=== PATIENT | female | born 1975 | race Two or more races ===

== ENCOUNTER 2020-06-10 23:33 | Emergency (ER) | payer MEDICAID, SELFPAY ==
[2020-06-10 23:55] VITALS: BP 108/60; PULSE 104; RESP 16; TEMP 37.1; O2SAT 99; BMI 25.6
--- NOTE | 2020-06-11 | XR_ITS ---
EXAMINATIONS: SHOULDER 3 VIEWS, BILATERAL CLINICAL INFORMATION: Bilateral shoulder pain after fall. COMPARISON: None. TECHNIQUE: AP views of each shoulder were obtained in internal and external rotation. In addition, Y views were obtained. FINDINGS: There are no fractures or dislocations. The humeral head is seated within a well-formed glenoid on each side. The AC joints are intact. IMPRESSION: Unremarkable bilateral shoulder radiographs.
--- NOTE | 2020-06-11 | XR_ITS ---
EXAMINATION: CERVICAL SPINE 4 VIEWS CLINICAL INFORMATION: Pain after fall. COMPARISON: None. TECHNIQUE: AP, lateral, odontoid and swimmer's views of the cervical spine were obtained. FINDINGS: The cervical vertebrae are in normal alignment. There is disc height loss at C5/C6 with mild anterior osteophyte formation. Disc heights and vertebral body heights are otherwise well-preserved. There are no fractures. There is no prevertebral soft tissue swelling. On the odontoid view, the atlas sits well upon the axis. IMPRESSION: No evidence for acute injury. Mild lower cervical spine degenerative change.
--- NOTE | 2020-06-11 | XR_ITS ---
EXAMINATION: CHEST 2 VIEWS CLINICAL INFORMATION: Pain after fall. COMPARISON: 05/08/2020. TECHNIQUE: PA and lateral views of the chest were obtained. FINDINGS: The cardiac silhouette is not enlarged. The mediastinal and hilar contours are unremarkable. There are neither pleural effusions nor pneumothoraces. There are no consolidations. Posterior spinal fusion hardware is intact. There is stable residual scoliosis. The osseous structures are stable. IMPRESSION: No evidence for acute disease.
--- NOTE | 2020-06-11 00:19 | ED.FALL ---
HPI - Fall General Chief Complaint: Fall <Brii Landon NP - Last Filed: 06/11/20 01:05> Stated Complaint: FELL IN SHOWER <Brii Landon NP - Last Filed: 06/11/20 01:05> Time Seen by Provider: 06/11/20 00:16 <Brii Landon NP - Last Filed: 06/11/20 01:05> Related Data Allergies/Adverse Reactions: Allergies Allergy/AdvReac Type Severity Reaction Status Date / Time SEAFOOD Allergy Unknown ITCHY Uncoded 06/11/20 00:03 <Brii Landon NP - Last Filed: 06/11/20 01:05> [facility] Past Medical History Medical History: Medical History (Updated 06/12/20 @ 00:00 by Luc Louis) Back complaints Carpal tunnel syndrome Depressed Diabetes Migraine Scoliosis Sleep disorder breathing <Brii Landon NP - Last Filed: 06/11/20 01:05> Surgical History: Surgical History (Updated 06/11/20 @ 00:02 by Janessa Boland) History of tubal ligation Previous back surgery <Brii Landon NP - Last Filed: 06/11/20 01:05> Social History Social History: Social History Alcohol intake: never Smoking Status: Never smoker Use of substances other than those prescribed or required for medical reasons: No Advance Directives: No Advance Directives Information Provided: No <Brii Landon NP - Last Filed: 06/11/20 01:05> Physical Exam Vital Signs and I&O and Narrative: Vital Signs and I&O: Vital Signs Temp 98.8 F 06/10/20 23:55 Pulse 90 06/11/20 01:29 Resp 18 06/11/20 01:29 BP 101/60 06/11/20 01:29 Pulse Ox 99 06/11/20 01:29 Intake & Output 06/11/20 06/11/20 06/12/20 06:59 18:59 06:59 Weight 63.503 kg Body Mass Index 25.6 <Brii Landon NP - Last Filed: 06/11/20 01:05> Vital Signs and I&O: Vital Signs Temp 98.8 F 06/10/20 23:55 Pulse 90 06/11/20 01:29 Resp 18 06/11/20 01:29 BP 101/60 06/11/20 01:29 Pulse Ox 99 06/11/20 01:29 Intake & Output 06/11/20 06/11/20 06/12/20 06:59 18:59 06:59 Weight 63.503 kg Body Mass Index 25.6 <Ray Munoz DO - Last Filed: 06/12/20 02:12> Course Course Hospital Course: 44-year-old female with chronic pain presents after a fall with bilateral shoulder and neck injury. she does have some pain with range of motion to bilateral arms and neck, we will rule out fracture and dislocation with x-rays. X-rays of cervical spine, bilateral shoulders and chest negative for acute findings. Patient does have follow-up with pain management on June 15. Patient was advised to keep that appointment. Patient verbalized understanding of and agrees to plan of care discharge home. <Brii Landon NP - Last Filed: 06/11/20 01:05> Reevaluation(s) Reevaluation #1: x-rays are negative for acute findings or fractures. Patient does have an appointment with pain management on June 15, and has medications at home. <Brii Landon NP - Last Filed: 06/11/20 01:05> Time: 01:04 <Brii Landon NP - Last Filed: 06/11/20 01:05> Discharge Plan Discharge Clinical Impression: Fall, Contusion <Brii Landon NP - Last Filed: 06/11/20 01:05> Patient Disposition: Home, Self-Care <Brii Landon NP - Last Filed: 06/11/20 01:05> Instructions: Contusion in Adults (ED) <Brii Landon NP - Last Filed: 06/11/20 01:05> Additional Instructions: you were evaluated for shoulder and neck pain after a slip and fall in the bathtub. X-rays of cervical spine, bilateral shoulders, and chest are negative for acute findings and fracture. Please continue to follow-up with pain management as scheduled on June 15. follow-up with primary care physician as needed. Return to the emergency department for any new, concerning, or worsening symptoms. <Brii Landon NP - Last Filed: 06/11/20 01:05> Referrals: Domingo Salazar MD [Physician] - 2 days ( Please follow-up with Dr. Salazar as scheduled.) <Brii Landon NP - Last Filed: 06/11/20 01:05> Interventions: ED Discharge Assessment Last Done: 06/11/20 01:58 <Brii Landon NP - Last Filed: 06/11/20 01:05> Discharge Date/Time: 06/11/20 01:59 <Brii Landon NP - Last Filed: 06/11/20 01:05>
[2020-06-11] MEDS: Lidocaine 4 % Patch ADH..PATCH 2 PATCH TRANSDERMA (01:21)
[2020-06-11] MEDS: Cyclobenzaprine HCl 10 MG TABLET PO (01:22)
[2020-06-11] MEDS: oxyCODONE HCl Immed Release 5 MG TABLET PO (01:23)
[2020-06-11 01:29] VITALS: BP 101/60; PULSE 90; RESP 18; O2SAT 99
--- NOTE | 2020-06-11 02:02 | ED_ITS ---
HPI - Fall General Chief Complaint: Fall <Brii Landon NP - Last Filed: 06/11/20 02:14> Stated Complaint: FELL IN SHOWER <Brii Landon NP - Last Filed: 06/11/20 02:14> Time Seen by Provider: 06/11/20 00:16 <Brii Landon NP - Last Filed: 06/11/20 02:14> Source: patient <Brii Landon NP - Last Filed: 06/11/20 02:14> Mode of arrival: ambulatory <Brii Landon NP - Last Filed: 06/11/20 02:14> Limitations: no limitations <Brii Landon NP - Last Filed: 06/11/20 02:14> History of Present Illness HPI Narrative: 44-year-old female presents with bilateral shoulder, neck, and left clavicle pain after falling in the shower. She slipped on soap, denies hitting her head and losing consciousness. She is being treated for chronic pain and has had multiple back surgeries. She is concerned about her shoulder pain as she feels that she might have hit herself quite hard while slipping in the shower. <Brii Landon NP - Last Filed: 06/11/20 02:14> MD complaint: fall <Brii Landon NP - Last Filed: 06/11/20 02:14> Onset (ago): hour(s) ( Just prior to arrival) <Brii Landon NP - Last Filed: 06/11/20 02:14> Fall from: standing <Brii Landon NP - Last Filed: 06/11/20 02:14> Fall witnessed: no <Brii Landon NP - Last Filed: 06/11/20 02:14> Place fall occurred: home ( shower) <Brii Landon NP - Last Filed: 06/11/20 02:14> Loss of consciousness: none <Brii Landon NP - Last Filed: 06/11/20 02:14> Prolonged down time: no <Brii Landon NP - Last Filed: 06/11/20 02:14> Symptoms prior to fall: none <Brii Landon NP - Last Filed: 06/11/20 02:14> Context: tripped/slipped ( on soap) <Brii Landon NP - Last Filed: 06/11/20 02:14> Location of injury: neck <Brii Landon NP - Last Filed: 06/11/20 02:14> Location of injury - extremities: bilateral: shoulder <Brii Landon NP - Last Filed: 06/11/20 02:14> Severity: moderate <Brii Landon NP - Last Filed: 06/11/20 02:14> Severity scale (1-10): 8 <Brii Landon NP - Last Filed: 06/11/20 02:14> Quality: aching and spasming <Brii Landon NP - Last Filed: 06/11/20 02:14> Associated symptoms (after fall): denies <Brii Landon NP - Last Filed: 06/11/20 02:14> Related Data Allergies/Adverse Reactions: Allergies Allergy/AdvReac Type Severity Reaction Status Date / Time SEAFOOD Allergy Unknown ITCHY Uncoded 06/11/20 00:03 <Brii Landon NP - Last Filed: 06/11/20 02:14> Review of Systems Review of Systems: Yes all other systems are reviewed and are negative <AIDA Chaves Last Filed: 06/11/20 02:14> Constitutional: Comments: constitutional; no weight loss, fevers, chills, night sweats, fatigue, malaise. ENT mouth; no hearing loss, ear pain, nasal congestion, sinus pain, changes in voice, throat pain, or difficulty swallowing Eyes; no pain in the eyes, redness, no changes in vision Cardiovascular; no chest pain or pressure, shortness of breath, shortness breath on exertion, no edema, no palpitations Respiratory: No cough, wheezing, shortness of breath Gastrointestinal, no nausea, vomiting, diarrhea, abdominal pain, abdominal distention : No irregular bleeding, dysuria, hematuria, frequency, incontinence, flank pain Musculoskeletal: Joint pain to bilateral shoulders, neck, pain on range of motion to both shoulders and neck Skin: No wounds lesions are no rash noted Neuro: No weakness numbness, indication of cauda equina, no LOC, dizziness, or head trauma Psych: No anxiety depression SI HI auditory visual hallucinations no social issues Heme lymph: No bleeding or bruising Endocrine: no polyuria polydipsia no temperature intolerance <Brii Landon NP - Last Filed: 06/11/20 02:14> [facility] Past Medical History Attestation statement: The following information was validated with the patient. <Brii Landon NP - Last Filed: 06/11/20 02:14> Medical History: Medical History (Updated 06/12/20 @ 00:00 by Luc Louis) Back complaints Carpal tunnel syndrome Depressed Diabetes Migraine Scoliosis Sleep disorder breathing <Brii Landon NP - Last Filed: 06/11/20 02:14> Surgical History: Surgical History (Updated 06/11/20 @ 00:02 by Janessa Boland) History of tubal ligation Previous back surgery <Brii Landon NP - Last Filed: 06/11/20 02:14> Social History Social History: Social History Alcohol intake: never Smoking Status: Never smoker Use of substances other than those prescribed or required for medical reasons: No Advance Directives: No Advance Directives Information Provided: No <Brii Landon NP - Last Filed: 06/11/20 02:14> Physical Exam Vital Signs and I&O and Narrative: Vital Signs and I&O: Vital Signs Temp 98.8 F 06/10/20 23:55 Pulse 90 06/11/20 01:29 Resp 18 06/11/20 01:29 BP 101/60 06/11/20 01:29 Pulse Ox 99 06/11/20 01:29 Intake & Output 06/11/20 06/11/20 06/12/20 06:59 18:59 06:59 Weight 63.503 kg Body Mass Index 25.6 <Brii Landon NP - Last Filed: 06/11/20 02:14> Vital Signs and I&O: Vital Signs Temp 98.8 F 06/10/20 23:55 Pulse 90 06/11/20 01:29 Resp 18 06/11/20 01:29 BP 101/60 06/11/20 01:29 Pulse Ox 99 06/11/20 01:29 Intake & Output 06/11/20 06/11/20 06/12/20 06:59 18:59 06:59 Weight 63.503 kg Body Mass Index 25.6 <Ray Munoz DO - Last Filed: 06/12/20 02:11> Const: General: cooperative, healthy appearing, comfortable, well developed, alert, awake, Physically active and acute distress mild <Brii Landon NP - Last Filed: 06/11/20 02:14> Nutritional Appearance: average body habitus <Brii Landon NP - Last Filed: 06/11/20 02:14> Orientation/consciousness: patient oriented x3 <Brii Landon FI[employer] FIGHTERS DISPATCHER - Last Filed: 06/11/20 02:14> Limitations: no limitations <Brii Landon NP - Last Filed: 06/11/20 02:14> HENMT: Head: Yes normal to inspection <Brii Landon NP - Last Filed: 06/11/20 02:14> Eyes: General: appearance normal, both eyes and all related structures <Brii Landon NP - Last Filed: 06/11/20 02:14> Sclerae: sclerae normal <Brii Landon NP - Last Filed: 06/11/20 02:14> Pupils: Equal, round and reactive pupils present <Brii Landon NP - Last Filed: 06/11/20 02:14> EOM: EOMs intact bilaterally <Brii Landon NP - Last Filed: 06/11/20 02:14> Neck: Neck: Yes normal visual inspection, Yes full ROM, Yes no lymphadenopathy, Yes no meningeal signs, Yes trachea midline, Yes supple and Yes tender ( moderate) <Brii Landon NP - Last Filed: 06/11/20 02:14> Chest: Chest palpation & inspection: normal inspection of the chest and normal palpation of entire chest wall <Brii Landon NP - Last Filed: 06/11/20 02:14> Resp: Effort & Inspection: normal respiratory effort and able to speak in complete sentences <Brii Landon NP - Last Filed: 06/11/20 02:14> Auscultation: clear to auscultation bilaterally <Brii Landon NP - Last Filed: 06/11/20 02:14> Cardio: Rate: regular rate <AIDA Chaves Last Filed: 06/11/20 02:14> Rhythm: regular rhythm <Brii Landon NP - Last Filed: 06/11/20 02:14> GI: Inspection: Yes normal to inspection <Brii Landon NP - Last Filed: 06/11/20 02:14> Back/Spine/Pelvis: Cervical Spine: cervical muscular tenderness, pain with cervical ROM and cervical spasm <Brii Landon NP - Last Filed: 06/11/20 02:14> Thoracic/Lumbar Spine: Thoracic/lumbar spine scar(s) <Brii Landon FIRE FIGHTERS DISPATCHER - Last Filed: 06/11/20 02:14> Pelvis: no pain with anterior-posterior compression and no pain with lateral compression <Brii Landon NP - Last Filed: 06/11/20 02:14> Skin: General skin exam: no rashes or lesions noted <Brii Landon NP - Last Filed: 06/11/20 02:14> Neuro: General: patient oriented x3 and no meningeal signs <Brii Landon FI[employer] FIGHTERS DISPATCHER - Last Filed: 06/11/20 02:14> Cranial nerves: Yes CN's II-XII intact bilaterally, Yes Facial sensation intact/muscles of mastication intact and Yes Equal, round and reactive pupils present <Brii Landon NP - Last Filed: 06/11/20 02:14> Cognition (Neuro): normal cognition <Brii Landon NP - Last Filed: 06/11/20 02:14> Extrem: General: Yes normal to inspection <Brii Landon NP - Last Filed: 06/11/20 02:14> Psych: Appearance: grossly normal <Brii Landon NP - Last Filed: 06/11/20 02:14> Mental Status: mental status grossly normal <Brii Landon NP - Last Filed: 06/11/20 02:14> Speech and movement: Normal speech and movement present <Brii Landon NP - Last Filed: 06/11/20 02:14> Affect: normal affect <Brii Landon NP - Last Filed: 06/11/20 02:14> Attitude: cooperative <Brii Landon NP - Last Filed: 06/11/20 02:14> Thought process: Normal thought process present <Brii Landon NP - Last Filed: 06/11/20 02:14> Course Course Hospital Course: 44-year-old female with chronic pain presents after a fall with bilateral shoulder and neck injury. she does have some pain with range of motion to bilateral arms and neck, we will rule out fracture and dislocation with x-rays. X-rays of cervical spine, bilateral shoulders and chest negative for acute findings. Patient does have follow-up with pain management on June 15. Patient was advised to keep that appointment. Patient verbalized understanding of and agrees to plan of care discharge home. <Brii Landon NP - Last Filed: 06/11/20 02:14> MDM - Fall Differential Diagnosis Differential diagnosis: Likely dislocation, fracture and compression fracture <Brii Landon NP - Last Filed: 06/11/20 02:14> Medical Records Attestation: I reviewed the patient's medical records. <Brii Landon NP - Last Filed: 06/11/20 02:14> Discharge Plan Discharge Clinical Impression: Fall, Contusion <Brii Landon NP - Last Filed: 06/11/20 02:14> Patient Disposition: Home, Self-Care <Brii Landon NP - Last Filed: 06/11/20 02:14> Instructions: Contusion in Adults (ED) <Brii Landon NP - Last Filed: 06/11/20 02:14> Additional Instructions: you were evaluated for shoulder and neck pain after a slip and fall in the bathtub. X-rays of cervical spine, bilateral shoulders, and chest are negative for acute findings and fracture. Please continue to follow-up with pain management as scheduled on June 15. follow-up with primary care physician as needed. Return to the emergency department for any new, concerning, or worsening symptoms. <AIDA Chaves Last Filed: 06/11/20 02:14> Referrals: Domingo Salazar MD [Physician] - 2 days ( Please follow-up with Dr. Salazar as scheduled.) <AIDA Chaves Last Filed: 06/11/20 02:14> Interventions: ED Discharge Assessment Last Done: 06/11/20 01:58 <Brii Landon NP - Last Filed: 06/11/20 02:14> Discharge Date/Time: 06/11/20 01:59 <Brii Landon NP - Last Filed: 06/11/20 02:14>
== END 2020-06-11 01:59 | disposition home or self-care (01) ==
PROVIDERS: Emergency Provider Emergency Medicine; PCP Internal Medicine
DX: S10.93XA Contusion of unspecified part of neck, initial encounter (principal); M54.2 Cervicalgia; M25.511 Pain in right shoulder; M25.512 Pain in left shoulder; G44.309 Post-traumatic headache, unspecified, not intractable; W18.2XXA Fall in (into) shower or empty bathtub, initial encounter; Y93.E1 Activity, personal bathing and showering; Y92.002 Bathroom of unspecified non-institutional (private) residence as the place of occurrence of the external cause
CPT/HCPCS: 71046; 72040; 73030; 99283; 99284

== ENCOUNTER 2020-12-14 15:06 | Emergency (ER) | payer MEDICAID, SELFPAY ==
--- NOTE | ~2020-12-14 | CT_ITS ---
EXAMINATION: CT ABDOMEN AND PELVIS WITHOUT CONTRAST CLINICAL INFORMATION: Right flank pain. History renal calculi. COMPARISON: CT abdomen and pelvis noncontrast 01/09/2020 and 02/17/2018; KUB 01/11/2020 and 03/02/2020. TECHNIQUE: Multidetector volumetric imaging was performed from the superior aspect of the liver through the pubic symphysis. Sagittal and coronal reformatted images were obtained on the technologist's workstation. This CT examination was performed using dose optimization techniques as appropriate, variously including the following: *Automated exposure control *Adjustment of mA and/or kV according to patient size (this includes techniques or standardized protocols for targeted exams where dose is matched to indication/reason for exam; i.e. extremities or head) *Use of iterative reconstruction technique DLP: 536 mGy-cm FINDINGS: LUNG BASES: The visualized lung bases are unremarkable. LIVER, GALLBLADDER, AND BILIARY TREE: The liver is normal in size, shape, and attenuation. No focal hepatic lesion or biliary ductal dilatation is present. The gallbladder is unremarkable with no evidence of radiopaque gallstones, gallbladder wall thickening, or obvious pericholecystic inflammatory changes. PANCREAS: Unremarkable. SPLEEN: Unremarkable. ADRENAL GLANDS: Unremarkable. KIDNEYS AND URETERS: The kidneys are normal in size and smooth in contour and show no hydronephrosis, hydroureter, or perinephric stranding. There is a punctate nonobstructing calculus interpolar right kidney, series 4 image 251 under 3 mm. Prior 6 mm calculus right lower pole is no longer demonstrated, and was not visible on the KUB 25/02/2020. No ureteral calculi. There is a punctate nonobstructing calculus lower pole left kidney under 4 mm. BLADDER: Unremarkable. GASTROINTESTINAL TRACT: There is no bowel obstruction or inflammatory changes in bowel or mesentery. There is moderate stool in the ascending and descending colon. The cecum is elevated similar to prior exam. The appendix is normal residing just anterior lateral to the right kidney. There is no ascites or fluid collection. No pneumatosis or free air. ABDOMINAL WALL: No significant hernia is appreciated. LYMPH NODES: No lymphadenopathy. VASCULAR: Unremarkable. PELVIC VISCERA: Unremarkable. OSSEOUS STRUCTURES: Prior rodding thoracolumbar spine. Thoracolumbar curvature. No acute bony abnormality demonstrated. CT/CT abdomen pelvis wo con IMPRESSION: 1. No hydronephrosis or perinephric stranding. Nonobstructing calculi. 2. No bowel obstruction or inflammatory changes. Normal appendix. 3. No ductal dilatation or pericholecystic inflammatory changes.
[2020-12-14 15:12] VITALS: BP 120/70; PULSE 94; RESP 20; TEMP 37.1; O2SAT 99; BMI 29.2
--- NOTE | 2020-12-14 15:28 | ED_ITS ---
HPI - Abdominal Pain General Chief Complaint: Abdominal Pain Stated Complaint: KIDNEY STONES Time Seen by Provider: 12/14/20 15:17 Source: patient and EMS Mode of arrival: EMS Limitations: no limitations History of Present Illness HPI narrative: hx of renal colic with hx of stents in the past, notes intermittent pains worse this week - + n/v and hematuria, states she doesn't drink water and only drinks ice tea worried she is passing another stone MD elicited complaint: flank pain Pertinent past history: kidney stones Onset (ago): week(s) (1) Pain Consistency: intermittent Location: L flank and R flank Severity: severe Quality: stabbing Radiation: none Migration to: L flank and R flank Exacerbating factors: nothing Relieving factors: nothing Context: history of similar episodes Associated symptoms: nausea, vomiting and hematuria Related Data Allergies Allergy/AdvReac Type Severity Reaction Status Date / Time SEAFOOD Allergy Unknown ITCHY Uncoded 06/11/20 00:03 Review of Systems Review of Systems Constitutional : No Fever, No Chills ENT/Mouth : No sore throat Eyes: No Eye Pain, No Swelling, No Redness Cardiovascular : No Chest Pain, No SOB Respiratory : No Cough, No Sputum, No Wheezing Gastrointestinal : positive Nausea, positive Vomiting, No Diarrhea, positive abdominal pain Genitourinary : no Dysuria, positive urinary frequency, positive Hematuria, positive Flank Pain, no hesitancy Musculoskeletal : No joint pain, No Myalgias Skin : No Skin Lesions, No rash Neuro : No Weakness, No Numbness, No Headache Psych : No Anxiety/Panic, No Depression Heme/Lymph: No Bruising, No Lymphadenopathy Endocrine : No Polyuria, No Polydipsia All other systems reviewed and are negative Physical Exam Vital Signs: Vital Signs: Last Vital Signs Temp 98.8 F 12/14/20 15:12 Pulse 94 12/14/20 15:12 Resp 18 12/14/20 15:47 BP 120/70 12/14/20 15:12 Pulse Ox 99 12/14/20 15:12 Body Mass Index 29.2 Appearance: Alert. Oriented X3. anxious, in pain, mild acute distress. Eyes: Pupils equal, round and reactive to light. ENT: Pharynx dry MM Neck: Normal inspection. Neck supple. CVS: Normal heart rate and rhythm. Pulses normal. Respiratory: No respiratory distress. Breath sounds normal. Abdomen: Soft and nontender. Back: bilateral flank ttp Skin: Skin warm and dry. Normal skin color. Normal skin turgor. Extremities: No lower extremity edema. No calf ttp Neuro: Oriented X 3. No motor deficit. No sensory deficit. Course Course Course Narrative: patient signed out pending labs, UA, CT scan results to oncoming provider MDM - Abdominal Pain MDM Narrative Medical decision making narrative: 45 yo female with hx of renal colic requiring stents at this time will need labs, UA, IVF, anti emetics, IV dilaudid for pain, CT scan to evaluate for renal colic Lab Data Result diagrams: 12/14/20 15:34 12/14/20 15:34 Labs: Lab Results 12/14/20 12/14/20 Range/Units 15:34 15:34 WBC 8.1 (4.8-10.8) X10*3/uL RBC 4.20 (4.20-5.50) X10*6/uL Hgb 12.3 (12.0-16.0) g/dl Hct 36.5 L (37-47) % MCV 86.9 (80-98) fL MCH 29.3 (27.0-33.0) pg MCHC 33.7 (31.0-35.0) g/dl RDW 13.7 (11.0-16.0) % Plt Count 280 (160-400) X10*3/uL MPV 10.3 (9.4-12.3) fL Immature Gran % (Auto) 0.4 (0.0-0.4) % Neut % (Auto) 65.0 (45-73) % Lymph % (Auto) 26.3 (20-40) % [place] % (Auto) 6.9 (2-11) % Eos % (Auto) 1.0 (0-4) % Baso % (Auto) 0.4 (0-2) % Lymph # (Auto) 2.1 (1.2-4.9) X10*3/uL [place] # (Auto) 0.6 (0.1-1.2) X10*3/uL Eos # (Auto) 0.1 (0.0-0.4) X10*3/uL Baso # (Auto) 0.0 (0.0-0.2) X10*3/uL Abs Immat Gran (auto) 0.03 (0.00-0.03) X10*3/uL Absolute Neuts (auto) 5.3 (2.0-8.3) X10*3/uL Absolute Nucleated RBC 0.000 (0.0-0.012) X10*3/uL Nucleated RBC % (auto) 0.0 (0.0-0.2) /100WBC Hold Blue Top SEE NOTE Discharge Plan Discharge Clinical Impression: Vomiting, Acute flank pain PMFSH Past Medical History Attestation statement: The following information was validated with the patient. Medical History (Updated 12/14/20 @ 16:11 by Araceli Gil DO) Back complaints Carpal tunnel syndrome Depressed Diabetes Migraine Renal colic Scoliosis Sleep disorder breathing Surgical History (Updated 12/14/20 @ 15:42 by Araceli Gil DO) History of tubal ligation History of ureter stent Previous back surgery Social History Social History (Updated 12/14/20 @ 15:43 by Araceli Gil DO) Alcohol intake: never Smoking Status: Current every day smoker Use of substances other than those prescribed or required for medical reasons: No Advance Directives: No Advance Directives Information Provided: Yes
[2020-12-14 15:41] LABS: MANUAL DIFF FLAG NO
[2020-12-14 15:43] LABS: Basophils Percent Auto 0.4 % (0-2); Eosinophils Absolute Auto 0.1 X10*3/uL (0.0-0.4); Hematocrit 36.5 % (37-47); Hemoglobin 12.3 g/dl (12.0-16.0); Imm Gran Abs Auto 0.03 X10*3/uL (0.00-0.03); Imm Gran Pct Auto 0.4 % (0.0-0.4); Lymphocytes Absolute Auto 2.1 X10*3/uL (1.2-4.9); Lymphocytes Percent Auto 26.3 % (20-40); Mean Corpuscular HGB Conc 33.7 g/dl (31.0-35.0); Mean Corpuscular Hemoglobin 29.3 pg (27.0-33.0); Mean Corpuscular Volume 86.9 fL (80-98); Mean Platelet Volume 10.3 fL (9.4-12.3); Monocytes Absolute Auto 0.6 X10*3/uL (0.1-1.2); Monocytes Percent Auto 6.9 % (2-11); Neutrophils Absolute Auto 5.3 X10*3/uL (2.0-8.3); Platelet Count 280 X10*3/uL (160-400); Red Cell Distribution Width 13.7 % (11.0-16.0); White Blood Count 8.1 X10*3/uL (4.8-10.8)
[2020-12-14 15:47] VITALS: RESP 18
[2020-12-14] MEDS: 0.9 % Sodium Chloride 1,000 ML 999 ML IVCONT (15:47)
[2020-12-14] MEDS: ondansetron HCL 4 MG/2 ML VIAL IVPUSH (15:47)
[2020-12-14] MEDS: HYDROmorphone HCl 0.5 MG/0.5 ML SYRINGE IVPUSH (15:47)
[2020-12-14 16:12] LABS: Alanine Aminotransferase 10 U/L (0-31); Albumin Level 4.1 g/dL (3.5-5.0); Alkaline Phosphatase 68 U/L (39-117); Anion Gap 12 (12-20); Aspartate Amino Transferase 12 U/L (5-31); Bilirubin Direct 0.2 mg/dL (0.0-0.5); Bilirubin Total 0.5 mg/dL (0.0-1.0); Blood Urea Nitrogen 11 mg/dL (9-16); Calcium 9.3 mg/dL (8.4-10.2); Carbon Dioxide 25 mmol/L (22-29); Chloride 106 mmol/L (96-108); Creatinine Clr Calc Pharmacy 88.8; Estimated Glomerular Filt Rate > 60; Glucose Random 104 mg/dL (60-115); Lipase 5 U/L (8-78); Potassium 3.9 mmol/L (3.3-5.1); Sodium 139 mmol/L (135-145); Total Protein 7.4 g/dL (6.5-8.0)
[2020-12-14 18:00] LABS: Glucose Urine UA NEG (NEG); Leukocyte Esterase Urine NEG (NEG); Nitrite Urine NEG (NEG); PH 7.5 (5.0-8.0); Urine Blood NEG (NEG); Urine Ketones NEG (NEG); Urine Protein NEG (NEG-TRACE)
[2020-12-14 18:02] LABS: Appearance Urine CLEAR; Color Urine YELLOW
[2020-12-14 18:33] VITALS: BP 114/66; PULSE 76; RESP 18; O2SAT 98
== END 2020-12-14 19:17 | disposition home or self-care (01) ==
PROVIDERS: Emergency Provider Emergency Medicine
DX: R10.9 Unspecified abdominal pain (principal); R11.10 Vomiting, unspecified; R31.9 Hematuria, unspecified; F17.200 Nicotine dependence, unspecified, uncomplicated; Z71.6 Tobacco abuse counseling; Z79.899 Other long term (current) drug therapy
CPT/HCPCS: 36415; 74176; 80048; 80076; 81003; 83690; 83735; 85025; 96365; 96375; 99285; J1170; J2405

== ENCOUNTER 2021-08-20 11:24 | Outpatient (REF) | payer MEDICAID, SELFPAY ==
[2021-08-25 16:06] LABS: Stone Source KIDNEY STONE
== END 2021-08-20 11:25 | disposition home or self-care (01) ==
LOC: HO.LNP 11:24
PROVIDERS: PCP Internal Medicine
DX: N20.0 Calculus of kidney (principal)
CPT/HCPCS: 82365; 87086; 87147; 88300; 99212

== ENCOUNTER 2021-08-21 13:54 | Outpatient (REF) | payer MEDICAID, SELFPAY | END 2021-08-21 13:55 | disposition home or self-care (01) | LOC: HO.LAB 13:54 | PROVIDERS: PCP Internal Medicine | DX: R31.9 Hematuria, unspecified (principal); E11.9 Type 2 diabetes mellitus without complications; Z91.013 Allergy to seafood | CPT/HCPCS: 87086; 87147; 99212 ==

== ENCOUNTER 2021-08-22 12:01 | Outpatient (REF) | payer MEDICAID, SELFPAY ==
--- NOTE | ~2021-08-22 | US_ITS ---
EXAMINATION: US RETROPERITONEAL LIMITED (RENAL ONLY) CLINICAL INFORMATION: Calculus of kidney. COMPARISON: CT abdomen and pelvis 12/14/2020. X-ray abdomen KUB 03/02/2020 and 01/11/2020. Ultrasound abdomen 12/20/2009. TECHNIQUE: Real-time imaging of the kidneys. FINDINGS: RIGHT KIDNEY: 10.2 x 4.0 x 5.8 cm (SAG x AP x TRV). The kidney is normal in size, contour, and echogenicity. Renal cortical thickness is normal. No calculi or focal parenchymal lesions. No hydronephrosis. Mild pelvic fullness. LEFT KIDNEY: 1.1 x 5.2 x 4.4 cm (SAG x AP x TRV). The kidney is normal in size, contour, and echogenicity. Renal cortical thickness is normal. No focal parenchymal lesions or hydronephrosis. 2 tiny nonobstructing calculi are seen, largest of which measures 0.3 x 0.2 x 0.3 cm. Mild pelvic fullness without hydronephrosis. US/US renal BI IMPRESSION: 1. Tiny nonobstructing left renal calculi. 2. Bilateral pelvic fullness, left greater than right without cesia hydronephrosis.
== END 2021-08-22 12:02 | disposition home or self-care (01) ==
LOC: HO.US 12:01
PROVIDERS: PCP Internal Medicine
DX: N20.0 Calculus of kidney (principal)
CPT/HCPCS: 76775

== ENCOUNTER 2021-10-22 13:46 | Outpatient (REF) | payer MEDICAID, SELFPAY ==
--- NOTE | ~2021-10-22 | XR_ITS ---
EXAMINATION: XR TIBIA AND FIBULA, LEFT CLINICAL INFORMATION: Left lower leg pain COMPARISON: None TECHNIQUE: AP and lateral views of the left tibia and fibula were obtained. FINDINGS: The bones and soft tissues are normal. No fracture. No osseous lesions. XR/XR tibia fibula LT 2V IMPRESSION: Normal left tibia and fibula.
== END 2021-10-22 13:47 | disposition home or self-care (01) ==
LOC: HO.XRAY 13:46
PROVIDERS: PCP Internal Medicine; Visit Provider Nurse Practitioner Primary Care
DX: S80.12XA Contusion of left lower leg, initial encounter (principal)
CPT/HCPCS: 73590

== ENCOUNTER 2021-12-11 13:03 | Outpatient (REF) | payer MEDICAID, SELFPAY ==
--- NOTE | ~2021-12-11 | XR_ITS ---
EXAMINATION: XR CHEST CLINICAL INFORMATION: Cough COMPARISON: 06/11/2020 TECHNIQUE: 2 views of the chest were obtained. FINDINGS: Normal symmetric lung volumes. No parenchymal consolidation. No pleural effusion. No pneumothorax. Cardiomediastinal silhouette and pulmonary vascularity are within normal limits. No acute osseous abnormalities. Lung segment posterior spinal fusion hardware redemonstrated extending from the midthoracic spine through the upper lumbar spine. XR/XR chest 2V IMPRESSION: Lungs are clear.
== END 2021-12-11 13:04 | disposition home or self-care (01) ==
LOC: HO.XRAY 13:03
PROVIDERS: Absent Provider Internal Medicine; PCP Internal Medicine; Visit Provider Emergency Medicine
DX: R05.9 Cough, unspecified (principal)
CPT/HCPCS: 71046

== ENCOUNTER 2022-05-28 10:08 | Outpatient (REF) | payer MEDICAID, SELFPAY ==
--- NOTE | ~2022-05-28 | CT_ITS ---
EXAMINATION: CT ABDOMEN AND PELVIS WITHOUT CONTRAST CLINICAL INFORMATION: Kidney stone COMPARISON: Previous CT of the abdomen and pelvis December 2020 and renal ultrasound August 2021 TECHNIQUE: Multidetector volumetric imaging was performed from the superior aspect of the liver through the pubic symphysis. Sagittal and coronal reformatted images were obtained on the technologist's workstation. This CT examination was performed using dose optimization techniques as appropriate, variously including the following: *Automated exposure control *Adjustment of mA and/or kV according to patient size (this includes techniques or standardized protocols for targeted exams where dose is matched to indication/reason for exam; i.e. extremities or head) *Use of iterative reconstruction technique DLP: 359 mGy-cm FINDINGS: LUNG BASES: The visualized lung bases are unremarkable. LIVER, GALLBLADDER, AND BILIARY TREE: The liver is normal in size, shape, and attenuation. No focal hepatic lesion or biliary ductal dilatation is present. The gallbladder is unremarkable with no evidence of radiopaque gallstones, gallbladder wall thickening, or obvious pericholecystic inflammatory changes. PANCREAS: Unremarkable. SPLEEN: Unremarkable. ADRENAL GLANDS: Unremarkable. KIDNEYS AND URETERS: There is a small 3 mm nonobstructing stone in the lower pole the left kidney. No other stone is seen. No hydronephrosis, ureteral dilatation or ureteral stone. BLADDER: Not optimally distended. GASTROINTESTINAL TRACT: The position of the cecum is high in the right mid abdomen. The small and large bowel are otherwise unremarkable. The appendix is normal. The stomach is normal. ABDOMINAL WALL: Small umbilical hernia containing fat. LYMPH NODES: Normal. VASCULAR: Unremarkable. PELVIC VISCERA: Unremarkable. OSSEOUS STRUCTURES: Severe thoracolumbar scoliosis. There are rods in the thoracic and upper lumbar spine.. CT/CT abdomen pelvis wo IV con IMPRESSION: Small nonobstructing left lower pole renal stone. Fleischner guidelines were followed.
== END 2022-05-28 10:09 | disposition home or self-care (01) ==
LOC: HO.CT 10:08
PROVIDERS: PCP Internal Medicine; Visit Provider Internal Medicine
DX: N20.0 Calculus of kidney (principal)
CPT/HCPCS: 74176

== ENCOUNTER 2023-07-14 13:54 | Outpatient (REF) | payer MEDICAID, SELFPAY ==
--- NOTE | ~2023-07-14 | XR_ITS ---
EXAMINATION: XR CHEST CLINICAL INFORMATION: Chronic cough smoker suspected COPD COMPARISON: Chest radiograph from 12/11/2021 TECHNIQUE: 2 views of the chest were obtained. FINDINGS: Hyperinflation of the bilateral lung martino. No pneumothorax. Trachea is midline. Cardiac mediastinal silhouette is stable. No large pleural effusion. Jones rods of the thoracolumbar spine and partially visualized with prominent dextrocurvature of the mid to lower thoracic spine. Soft tissues are unremarkable. XR/XR chest 2V IMPRESSION: 1. No acute cardiopulmonary process. 2. Hyperinflation of the bilateral lung martino.
== END 2023-07-14 13:55 | disposition home or self-care (01) ==
LOC: HO.HHCX 13:54
PROVIDERS: Visit Provider Internal Medicine Geriatric Medicine
DX: R05.3 Chronic cough (principal); F17.200 Nicotine dependence, unspecified, uncomplicated
CPT/HCPCS: 71046

== ENCOUNTER 2023-11-13 09:42 | Outpatient (REF) | payer MEDICAID, SELFPAY ==
--- NOTE | ~2023-11-13 | XR_ITS ---
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 COMPARISON: None available. TECHNIQUE: AP view of the abdomen. FINDINGS: There is scattered stool and gas seen in colon without significant distention. The small bowel loops are normal caliber. There is no organomegaly. There are 2 Jones rods from thoracolumbar spine for correction of scoliosis with no visible hardware abnormality on these images. Both kidneys are not well visualized due to gas and stool overlying both kidneys. No abnormality involving the pelvic bones. XR/XR KUB IMPRESSION: 1. Mild constipation. No acute process seen. 2. Kidneys are not visualized due to gas and stool overlying them.
== END 2023-11-13 09:43 | disposition home or self-care (01) ==
LOC: HO.HHCX 09:42
PROVIDERS: Visit Provider Student in an Organized Health Care Education/Training Program
DX: R31.9 Hematuria, unspecified (principal); N28.9 Disorder of kidney and ureter, unspecified
CPT/HCPCS: 74018

== ENCOUNTER 2024-01-13 12:52 | Outpatient (AMB) | payer MEDICAID, SELFPAY ==
--- NOTE | 2024-01-13 13:13 | A.OFFVIS_ITS ---
Intake Visit Reasons: hx nephrolithiasis Intake Note: New Patient presents for initial visit for nephrolithiasis Urology Medications: none Blood Thinner: none Control Inspector Required: No Accompanied by: Unknown Allergies SEAFOOD Allergy (Unknown, Uncoded 01/13/24 21:04) ITCHY Medication List - Last Reconciled 01/13/24 by MAGUI Uriarte atorvastatin 20 mg PO DAILY cholecalciferol (vitamin D3) (Vitamin D3) 25 mcg PO DAILY cyclobenzaprine 10 mg PO TID PRN duloxetine 90 mg PO DAILY gabapentin 800 mg PO TID ibuprofen 800 mg PO TID ketoconazole 2% appl topical BEDTIME methocarbamol 500 mg PO TID omeprazole 20 mg PO DAILY ondansetron 4 mg PO Q8H PRN ondansetron HCl 0 mg PO quetiapine 100 mg PO BEDTIME quetiapine 25 mg PO BEDTIME silver sulfadiazine 1% appl topical sumatriptan succinate 100 mg PO DIRECTED HPI Comments Details: Alka is a pleasant 48-year-old female patient of Dr. Lewis who was accompanied by her significant other at today's office visit. She has a past medical history of nephrolithiasis, migraines, carpal tunnel syndrome, depression, diabetes, and scoliosis. She presents to the office today for a follow up of her nephrolithiasis. In discussion with the patient today she reports previously following up with Dr. Beaulieu for her nephrolithiasis. She reports having had multiple lithotripsies in the past. She is currently reporting bilateral flank pain right side greater than left. However, no CVA tenderness noted bilaterally on exam today. She otherwise denies urinary urgency, urinary frequency, incontinence, nocturia, hematuria, dysuria, foul smelling urine, changes to urinary stream, fever, and or chills. She is happy with her current voiding parameters. In review of patient's chart it appears recent KUB was ordered and performed. These results reviewed with the patient today. Mild constipation, no acute process is seen. Kidneys are not visualized due to gas and stool overlying them. She reports she does not like to drink water and knows this is an issue regarding nephrolithiasis. She does endorse to drinking Gatorade daily. In office urinalysis results reviewed with the patient today. She otherwise offers no other issues or concerns at this time. [facility] Medical History Hematuria Renal colic Migraine Carpal tunnel syndrome Sleep disorder breathing Depressed Diabetes Back complaints Scoliosis Surgical History History of ureter stent History of tubal ligation Previous back surgery Social History Alcohol intake: never Review of Systems Const Reports no additional complaints Eyes Reports no additional complaints ENT Reports no additional complaints Card Reports no additional complaints Resp Reports no additional complaints GI Reports no additional complaints Reports as per HPI Musc Reports as per HPI Neuro Reports as per HPI Psych Reports as per HPI Endo Reports as per HPI Riky/Lymph Reports no additional complaints Aller/Immun Reports no additional complaints Physical Exam Const General: cooperative, healthy appearing, comfortable, no acute distress, well developed, alert and awake Orientation/consciousness: patient oriented x3 Limitations: no limitations HEENT Head: Yes normal to inspection, Yes normocephalic and Yes atraumatic Ears: hearing grossly normal bilaterally Eyes General: appearance normal, both eyes and all related structures Neck Neck: Yes normal visual inspection and Yes trachea midline Chest Chest palpation & inspection: normal inspection of the chest Resp Effort & Inspection: normal respiratory effort and able to speak in complete sentences Cardio Rate: regular rate GI Inspection: Yes normal to inspection General: Yes no CVA tenderness Back/Spine/Pelvis Back: no CVA tenderness Skin General skin exam: no rashes or lesions noted Neuro General: patient oriented x3 Extrem General: Yes normal to inspection Psych Appearance: grossly normal and well kempt Mental Status: mental status grossly normal Speech and movement: Normal speech and movement present and Clear speech present Affect: normal affect Attitude: cooperative Thought process: Normal thought process present Thought content: Normal thought content present Insight: Fair insight present (Psych) Judgement: Fair judgement present (Psych) Results AMB Urinalysis, Automated UA Leukoctes 15 Margarito/uL Last Edit by Carmen Gomez on 01/13/24 13:26 UA Nitrite Last Edit by Carmen Gomez on 01/13/24 13:26 UA Urobilinogen 0.2 mg/dL Last Edit by Carmen Gomez on 01/13/24 13:26 UA Protein 15 mg/dL Last Edit by Carmen Gomez on 01/13/24 13:26 UA pH 6.0 Last Edit by Carmen Gomez on 01/13/24 13:26 UA Blood 0 Tom/uL Last Edit by Carmen Gomez on 01/13/24 13:26 UA Specific [place] 1.015 Last Edit by Carmen Gomez on 01/13/24 13:26 UA Ketone Negative Last Edit by Carmen Gomez on 01/13/24 13:26 UA Bilirubin 0 mg/dL Last Edit by Carmen Gomez on 01/13/24 13:26 UA Glucose 0 mg/dL Last Edit by Carmen Gomez on 01/13/24 13:26 Results Reviewed Results Reviewed: Laboratory Last Values Urine pH (Auto) 6.0 01/13/24 13:19 Specific [place] (Auto) 1.015 01/13/24 13:19 Urine Protein (Auto) 15 mg/dL 01/13/24 13:19 Glucose (UA)(Auto) 0 mg/dL 01/13/24 13:19 Urine Ketones (Auto) Negative 01/13/24 13:19 Urine Blood (Auto) 0 Tom/uL 01/13/24 13:19 Urine Bilirubin (Auto) 0 mg/dL 01/13/24 13:19 Urine Urobilinogen (Auto) 0.2 mg/dL 01/13/24 13:19 Leukocyte Esterase (Auto) 15 Margarito/uL 01/13/24 13:19 Date of Service: 11/13/23 EXAMINATION: XR ABDOMEN KUB FINDINGS: There is scattered stool and gas seen in colon without significant distention. The small bowel loops are normal caliber. There is no organomegaly. There are 2 Jones rods from thoracolumbar spine for correction of scoliosis with no visible hardware abnormality on these images. Both kidneys are not well visualized due to gas and stool overlying both kidneys. No abnormality involving the pelvic bones. IMPRESSION: 1. Mild constipation. No acute process seen. 2. Kidneys are not visualized due to gas and stool overlying them. Assessment & Plan Assessment & Plan (1) Calcium nephrolithiasis: Code(s): N20.0 - Calculus of kidney Category: Medical (2) Flank pain: Code(s): R10.9 - Unspecified abdominal pain Category: Medical Plan In office urinalysis results reviewed with the patient today; as noted above. Recent KUB results reviewed with the patient today; as noted above. Discussed, educated, and stressed the importance of drinking plenty of water daily. Discussed adding 1 oz of lemon juice to water daily. Will obtain renal ultrasound for further assessment evaluation. Patient reports be happy with current voiding parameters. Follow-up in 1-3 months with imaging to be completed prior; or sooner with any issues, concerns, and or questions. Orders: Orders AMB Urinalysis Automated Today Z13.9 - Encounter for screening, unspecified US renal BI Today N20.0 - Calculus of kidney Patient Instructions: The patient had an opportunity to ask questions regarding the treatment plan. All questions were answered. Physical exam, labs, and imaging were discussed and reviewed in detail. As well as risks, benefits, and discussion of treatment choices. No major barriers to understanding were identified. The patient expressed understanding and agreement with the above treatment plan. The patient was made aware they should contact our office by phone for worsening of their current condition, the appearance of new symptoms, or with any questions or concerns. Compliance is encouraged with any medications and follow up testing that is ordered. It is a privilege to be allowed the opportunity to participate in? your urological care.? Again, if you have any questions or concerns If you have any questions or concerns please do not hesitate to contact me. The office is [phone]. This note is constructed using voice recognition software. While every effort has been made to ensure accuracy right of way manager errors may have been included. Yours sincerely, MAGUI Uriarte Coding Level of Care Code Est Pt Level 3 (78990) Diagnoses Calcium nephrolithiasis N20.0 Flank pain R10.9
== END 2024-01-13 13:41 | disposition home or self-care (01) ==
PROVIDERS: PCP Internal Medicine; Visit Provider Nurse Practitioner Family
DX: N20.0 Calculus of kidney (principal); R10.9 Unspecified abdominal pain; Z13.9 Encounter for screening, unspecified
CPT/HCPCS: 99213

== ENCOUNTER → 2024-01-13 12:52 | Outpatient (BNVA) | payer MEDICAID, SELFPAY | PROVIDERS: PCP Internal Medicine; Visit Provider Nurse Practitioner Family | DX: N20.0 Calculus of kidney (principal); R10.9 Unspecified abdominal pain | CPT/HCPCS: 81003; 99212 ==

== ENCOUNTER 2024-04-06 16:03 | Outpatient (REF) | payer MEDICAID, SELFPAY ==
--- NOTE | ~2024-04-06 | US_ITS ---
EXAMINATION: US RETROPERITONEAL LIMITED (RENAL ONLY) CLINICAL INFORMATION: Calculus of kidney. COMPARISON: X-ray abdomen KUB 11/13/2023. CT abdomen and pelvis 05/28/2022. Renal ultrasound 08/22/2021. X-ray abdomen KUB 03/02/2020. TECHNIQUE: Real-time imaging of the kidneys. Limited visualization due to bowel gas. FINDINGS: RIGHT KIDNEY: 9.4 x 4.5 x 4.4 cm (SAG x AP x TRV). Mild fullness right renal pelvis. No renal calculi. Renal cortical thickness is normal. Limited visualization. LEFT KIDNEY: 10.5 x 5.2 x 5.1 cm (SAG x AP x TRV). Mild fullness left renal pelvis. A 6 mm mid pole calculus. Normal renal cortical thickness. Limited visualization. US/US renal BI IMPRESSION: 1. A 6 mm left renal calculus. 2. Mild fullness bilateral renal pelvises.
== END 2024-04-06 16:04 | disposition home or self-care (01) ==
LOC: HO.US 16:03
PROVIDERS: Visit Provider Nurse Practitioner Family
DX: N20.0 Calculus of kidney (principal)
CPT/HCPCS: 76775

== ENCOUNTER 2024-04-13 09:52 | Outpatient (AMB) | payer MEDICAID, SELFPAY ==
--- NOTE | 2024-04-13 09:57 | MHC.OFFVIS ---
Intake Visit Reasons: /(set) Intake Note: New Patient presents for / Urology Medications: none Blood Thinner: none ALLERGIES: NONE Clergy Member Required: No Accompanied by: Unknown Allergies SEAFOOD Allergy (Unknown, Uncoded 04/13/24 10:46) ITCHY Medication List - Last Reconciled 04/13/24 by MAGUI Uriarte atorvastatin 20 mg PO DAILY cholecalciferol (vitamin D3) (Vitamin D3) 25 mcg PO DAILY cyclobenzaprine 10 mg PO TID PRN duloxetine 90 mg PO DAILY gabapentin 800 mg PO TID ketoconazole 2% appl topical BEDTIME methocarbamol 500 mg PO TID ondansetron 4 mg PO Q8H PRN quetiapine 100 mg PO BEDTIME quetiapine 25 mg PO BEDTIME silver sulfadiazine 1% appl topical sumatriptan succinate 100 mg PO DIRECTED HPI Comments Details: Alka is a pleasant 48-year-old female patient of Dr. Lewis who was accompanied by her significant other at today's office visit. She has a past medical history of nephrolithiasis, migraines, carpal tunnel syndrome, depression, diabetes, and scoliosis. She presents to the office today for a follow up of her nephrolithiasis. Recent renal imaging results reviewed with the patient today. Bilateral kidneys with mild fullness in the renal pelvis. No renal calculi noted. 6 mm mid pole left renal stone. In discussion with the patient today she reports flank pain she had been experiencing since her last office visit here approximately 3 months ago has since subsided. She discusses being on her menses. In office urinalysis results reviewed with the patient today 2+ leukocytes, positive nitrates, 3+ protein, and 3+ blood. She currently denies any bothersome urinary issues or concerns. She discusses since her last office visit here she has been attempting to increase her water intake. She denies urinary urgency, urinary frequency, incontinence, nocturia, hematuria, dysuria, foul smelling urine, changes to urinary stream, flank pain, fever, and or chills. She is happy with her current voiding parameters. She otherwise offers no other issues or concerns at this time. [facility] Medical History Hematuria Renal colic Migraine Carpal tunnel syndrome Sleep disorder breathing Depressed Diabetes Back complaints Scoliosis Surgical History History of ureter stent History of tubal ligation Previous back surgery Social History Alcohol intake: never Review of Systems Const Reports no additional complaints Eyes Reports no additional complaints ENT Reports no additional complaints Card Reports no additional complaints Resp Reports no additional complaints GI Reports no additional complaints Reports as per HPI Musc Reports as per HPI Neuro Reports as per HPI Psych Reports as per HPI Endo Reports as per HPI Riky/Lymph Reports no additional complaints Aller/Immun Reports no additional complaints Physical Exam Const General: cooperative, healthy appearing, comfortable, no acute distress, well developed, alert and awake Orientation/consciousness: patient oriented x3 Limitations: no limitations HEENT Head: Yes normal to inspection, Yes normocephalic and Yes atraumatic Ears: hearing grossly normal bilaterally Eyes General: appearance normal, both eyes and all related structures Neck Neck: Yes normal visual inspection and Yes trachea midline Chest Chest palpation & inspection: normal inspection of the chest Resp Effort & Inspection: normal respiratory effort and able to speak in complete sentences Cardio Rate: regular rate GI Inspection: Yes normal to inspection General: Yes no CVA tenderness Back/Spine/Pelvis Back: no CVA tenderness Skin General skin exam: no rashes or lesions noted Neuro General: patient oriented x3 Extrem General: Yes normal to inspection Psych Appearance: grossly normal and well kempt Mental Status: mental status grossly normal Speech and movement: Normal speech and movement present and Clear speech present Affect: normal affect Attitude: cooperative Thought process: Normal thought process present Thought content: Normal thought content present Insight: Fair insight present (Psych) Judgement: Fair judgement present (Psych) Results AMB Urinalysis, Automated UA Leukoctes 125 Margarito/uL Last Edit by WINSTON Harris on 04/13/24 10:31 UA Nitrite Positive Last Edit by WINSTON Harris on 04/13/24 10:31 UA Urobilinogen 1 mg/dL Last Edit by WINSTON Harris on 04/13/24 10:31 UA Protein 300 mg/dL Last Edit by WINSTON Harris on 04/13/24 10:31 UA pH 6.0 Last Edit by WINSTON Harris on 04/13/24 10:31 UA Blood 200 Tom/uL Last Edit by German Carroll [facility] on 04/13/24 10:31 UA Specific [place] 1.020 Last Edit by WINSTON Harris on 04/13/24 10:31 UA Ketone Positive Last Edit by German Carroll [facility] on 04/13/24 10:31 UA Bilirubin 1 mg/dL Last Edit by German Carroll [facility] on 04/13/24 10:31 UA Glucose 0 mg/dL Last Edit by German Carroll [facility] on 04/13/24 10:31 Results Reviewed Results Reviewed: Laboratory Last Values Urine pH (Auto) 6.0 04/13/24 10:30 Specific [place] (Auto) 1.020 04/13/24 10:30 Urine Protein (Auto) 300 mg/dL 04/13/24 10:30 Glucose (UA)(Auto) 0 mg/dL 04/13/24 10:30 Urine Ketones (Auto) Positive 04/13/24 10:30 Urine Blood (Auto) 200 Tom/uL 04/13/24 10:30 Urine Nitrite (Auto) Positive 04/13/24 10:30 Urine Bilirubin (Auto) 1 mg/dL 04/13/24 10:30 Urine Urobilinogen (Auto) 1 mg/dL 04/13/24 10:30 Leukocyte Esterase (Auto) 125 Margarito/uL 04/13/24 10:30 Date of Service: 04/06/24 EXAMINATION: US RETROPERITONEAL LIMITED (RENAL ONLY) FINDINGS: RIGHT KIDNEY: 9.4 x 4.5 x 4.4 cm (SAG x AP x TRV). Mild fullness right renal pelvis. No renal calculi. Renal cortical thickness is normal. Limited visualization. LEFT KIDNEY: 10.5 x 5.2 x 5.1 cm (SAG x AP x TRV). Mild fullness left renal pelvis. A 6 mm mid pole calculus. Normal renal cortical thickness. Limited visualization. IMPRESSION: 1. A 6 mm left renal calculus. 2. Mild fullness bilateral renal pelvises. Assessment & Plan Assessment & Plan (1) Calcium nephrolithiasis: Code(s): N20.0 - Calculus of kidney Category: Medical (2) Hematuria: Code(s): R31.9 - Hematuria, unspecified Category: Medical (3) Urinary tract infection: Code(s): N39.0 - Urinary tract infection, site not specified Category: Medical Plan In office urinalysis results reviewed with the patient today; as noted above; will send for urine culture; will await final culture results for potential treatment Recent renal ultrasound results reviewed with the patient today; as noted above. Patient currently denies any bothersome urinary issues or concerns today She is happy with her current voiding parameters. Discussed at length importance of adequate hydration relation to nephrolithiasis as well as overall health and well-being. Discussed further treatment options of nephrolithiasis with surgical intervention versus surveillance monitoring; risks and benefits of these interventions were discussed. Discussed further metabolic workup with 24 hour urine collection and labs Follow-up in 1-3 months with labs; or sooner with any issues, concerns, and or questions. Orders: Orders AMB Urinalysis Automated 04/13/24 Z13.9 - Encounter for screening, unspecified Urine Culture 04/13/24 N39.0 - Urinary tract infection, site not specified Creatinine 04/13/24 N39.0 - Urinary tract infection, site not specified, R31.9 - Hematuria, unspecified Blood Urea Nitrogen 04/13/24 N39.0 - Urinary tract infection, site not specified, R31.9 - Hematuria, unspecified Patient Instructions: The patient had an opportunity to ask questions regarding the treatment plan. All questions were answered. Physical exam, labs, and imaging were discussed and reviewed in detail. As well as risks, benefits, and discussion of treatment choices. No major barriers to understanding were identified. The patient expressed understanding and agreement with the above treatment plan. The patient was made aware they should contact our office by phone for worsening of their current condition, the appearance of new symptoms, or with any questions or concerns. Compliance is encouraged with any medications and follow up testing that is ordered. It is a privilege to be allowed the opportunity to participate in? your urological care.? Again, if you have any questions or concerns If you have any questions or concerns please do not hesitate to contact me. The office is [phone]. This note is constructed using voice recognition software. While every effort has been made to ensure accuracy biochemistry technician errors may have been included. Yours sincerely, MAGUI Uriarte Coding Level of Care Code Est Pt Level 3 (08607) Diagnoses Calcium nephrolithiasis N20.0 Hematuria R31.9 Urinary tract infection N39.0
== END 2024-04-13 10:47 | disposition home or self-care (01) ==
PROVIDERS: PCP Internal Medicine; Visit Provider Nurse Practitioner Family
DX: N20.0 Calculus of kidney (principal); R31.9 Hematuria, unspecified; N39.0 Urinary tract infection, site not specified
CPT/HCPCS: 99213

== ENCOUNTER 2024-04-13 09:52 | Outpatient (REF) | payer MEDICAID, SELFPAY | END 2024-04-13 09:53 | disposition home or self-care (01) | LOC: HO.LNP 09:52 | PROVIDERS: PCP Internal Medicine; Visit Provider Nurse Practitioner Family | DX: N20.0 Calculus of kidney (principal); N39.0 Urinary tract infection, site not specified; R31.9 Hematuria, unspecified | CPT/HCPCS: 81003; 87086; 99212 ==

== ENCOUNTER 2024-06-14 09:45 | Outpatient (REF) | payer MEDICAID, SELFPAY ==
[2024-06-14 12:21] LABS: Anion Gap 13 (12-20); Blood Urea Nitrogen 9 mg/dL (9-16); Calcium 9.3 mg/dL (8.4-10.2); Carbon Dioxide 25 mmol/L (22-29); Chloride 108 mmol/L (96-108); Cholesterol 129 mg/dL (<200); Estimated Glomerular Filt Rate > 60; Glucose Random 100 mg/dL (60-115); HDL Cholesterol 61 mg/dL (>40); LDL Cholesterol Calculated 60 mg/dL (<100); Potassium 3.8 mmol/L (3.3-5.1); Sodium 142 mmol/L (135-145); Triglycerides 43 mg/dL (<150)
[2024-06-14 12:22] LABS: TSH reflex Free T4 0.94 uIU/mL (0.32-4.0); Vitamin D 25-OH Total 53.4 ng/mL (>30)
[2024-06-14 13:36] LABS: Reflex LDLD? No
== END 2024-06-14 09:46 | disposition home or self-care (01) ==
LOC: HO.HHCL 09:45
PROVIDERS: Visit Provider Internal Medicine
DX: E11.9 Type 2 diabetes mellitus without complications (principal); E55.9 Vitamin D deficiency, unspecified
CPT/HCPCS: 36415; 80048; 80061; 82306; 84443

== ENCOUNTER 2024-07-14 09:32 | Outpatient (AMB) | payer MEDICAID, SELFPAY ==
--- NOTE | 2024-07-14 09:35 | A.OFFVIS_ITS ---
Intake Visit Reasons: 3m/PVR Intake Note: Patient presents today for follow up on: hematuria, uti, and calcium nep hrolithiasis Urology Medications: none Blood Thinner: none ALLERGIES: NONE PVR: 0ml's Coring Machine Operator Required: No Accompanied by: Unknown Allergies SEAFOOD Allergy (Unknown, Uncoded 07/14/24 10:05) ITCHY Medication List - Last Reconciled 07/14/24 by MAGUI Uriarte atorvastatin 20 mg PO DAILY cholecalciferol (vitamin D3) (Vitamin D3) 25 mcg PO DAILY cyclobenzaprine 10 mg PO TID PRN duloxetine 90 mg PO DAILY gabapentin 800 mg PO TID ketoconazole 2% appl topical BEDTIME methocarbamol 500 mg PO TID omeprazole 20 mg PO DAILY ondansetron 4 mg PO Q8H PRN quetiapine 100 mg PO BEDTIME quetiapine 25 mg PO BEDTIME sumatriptan succinate 100 mg PO DIRECTED HPI Comments Details: Alka is a pleasant 48-year-old female patient of Dr. Lewis. She has a past medical history of nephrolithiasis, migraines, carpal tunnel syndrome, depression, diabetes, and scoliosis. She presents to the office today for a follow up of her nephrolithiasis and ongoing lower urinary tract symptoms. In discussion with the patient today she continues to report bilateral flank pain left side greater than right and episodes of dysuria. In office urinalysis results reviewed with the patient today 2+ leukocytes negative nitrates. She discusses her ongoing issues with constipation. We discussed correlation of constipation with lower urinary tract symptoms. She otherwise denies urinary urgency, urinary frequency, incontinence, nocturia, hematuria, foul smelling urine, changes to urinary stream, fever, and or chills. During last office visit urine was sent for culture due to UTI like symptoms as well as positive nitrates on urinalysis in office. Urine culture 04/30 noted > 100,000 cfu/ml Mixed bacterial. She discusses attempting to increase water intake however finds this difficult. We discussed potential causes of flank pain as well as dysuria. Discussed obtaining CT KUB for further assessment evaluation as well as sending urine today for microgen. She otherwise offers no other issues or concerns at this time. [facility] Medical History Hematuria Renal colic Migraine Carpal tunnel syndrome Sleep disorder breathing Depressed Diabetes Back complaints Scoliosis Surgical History History of ureter stent History of tubal ligation Previous back surgery Social History Alcohol intake: never Review of Systems Const Reports no additional complaints Eyes Reports no additional complaints ENT Reports no additional complaints Card Reports no additional complaints Resp Reports no additional complaints GI Reports no additional complaints Reports as per HPI Musc Reports as per HPI Neuro Reports as per HPI Psych Reports as per HPI Endo Reports as per HPI Riky/Lymph Reports no additional complaints Aller/Immun Reports no additional complaints Physical Exam Const General: cooperative, healthy appearing, comfortable, no acute distress, well developed, alert and awake Orientation/consciousness: patient oriented x3 Limitations: no limitations HEENT Head: Yes normal to inspection, Yes normocephalic and Yes atraumatic Ears: hearing grossly normal bilaterally Eyes General: appearance normal, both eyes and all related structures Neck Neck: Yes normal visual inspection and Yes trachea midline Chest Chest palpation & inspection: normal inspection of the chest Resp Effort & Inspection: normal respiratory effort and able to speak in complete sentences Cardio Rate: regular rate GI Inspection: Yes normal to inspection General: Yes no CVA tenderness Back/Spine/Pelvis Back: no CVA tenderness Skin General skin exam: no rashes or lesions noted Neuro General: patient oriented x3 Extrem General: Yes normal to inspection Psych Appearance: grossly normal and well kempt Mental Status: mental status grossly normal Speech and movement: Normal speech and movement present and Clear speech present Affect: normal affect Attitude: cooperative Thought process: Normal thought process present Thought content: Normal thought content present Insight: Fair insight present (Psych) Judgement: Fair judgement present (Psych) Office Procedures Post Void Residual Post Residual Void Post Void Residual (PVR): 0 11835-[id number] Void Residual by ultrasound Results AMB Urinalysis, Automated UA Leukoctes 125 Margarito/uL Last Edit by Carmen Gomez on 07/14/24 09:51 UA Nitrite Last Edit by Carmen Gomez on 07/14/24 09:51 UA Urobilinogen 0.2 mg/dL Last Edit by Carmen Gomez on 07/14/24 09:51 UA Protein 30 mg/dL Last Edit by Carmen Gomez on 07/14/24 09:51 UA pH 6.0 Last Edit by Carmen Gomez on 07/14/24 09:51 UA Blood 0 Tom/uL Last Edit by Carmen Gomez on 07/14/24 09:51 UA Specific Goodman 1.025 Last Edit by Carmen Gomez on 07/14/24 09:51 UA Ketone Positive Last Edit by Carmen Gomez on 07/14/24 09:51 UA Bilirubin 0 mg/dL Last Edit by Carmen Gomez on 07/14/24 09:51 UA Glucose 0 mg/dL Last Edit by Carmen Gomez on 07/14/24 09:51 Results Reviewed Results Reviewed: Laboratory Last Values Urine pH (Auto) 6.0 07/14/24 09:49 Specific Goodman (Auto) 1.025 07/14/24 09:49 Urine Protein (Auto) 30 mg/dL 07/14/24 09:49 Glucose (UA)(Auto) 0 mg/dL 07/14/24 09:49 Urine Ketones (Auto) Positive 07/14/24 09:49 Urine Blood (Auto) 0 Tom/uL 07/14/24 09:49 Urine Bilirubin (Auto) 0 mg/dL 07/14/24 09:49 Urine Urobilinogen (Auto) 0.2 mg/dL 07/14/24 09:49 Leukocyte Esterase (Auto) 125 Margarito/uL 07/14/24 09:49 Assessment & Plan Assessment & Plan (1) Calcium nephrolithiasis: Code(s): N20.0 - Calculus of kidney Category: Medical (2) Flank pain: Code(s): R10.9 - Unspecified abdominal pain Category: Medical Plan In office urinalysis results reviewed with the patient today; as noted above; will send for microgen testing. Will refer to GI for further assessment evaluation of constipation. Will obtain CT KUB for further assessment evaluation. Discussed, educated, and stressed the importance of adequate hydration relation to nephrolithiasis, lower urinary tract symptoms, and constipation. Follow-up in 1-3 months with imaging to be completed prior; or sooner with any issues, concerns, and or questions. Orders: Orders CT kidney stone Today N20.0 - Calculus of kidney, R10.9 - Unspecified abdominal pain AMB Urinalysis Automated Today Z13.9 - Encounter for screening, unspecified AMB Post Void Residual by ultrasound Today N39.0 - Urinary tract infection, site not specified Referrals Gastroenterology Referral K59.00 - Constipation, unspecified Medications: Refilled ondansetron 4 mg PO Q8H PRN 20 tabs 0RF nausea and vomiting Patient Instructions: The patient had an opportunity to ask questions regarding the treatment plan. All questions were answered. Physical exam, labs, and imaging were discussed and reviewed in detail. As well as risks, benefits, and discussion of treatment choices. No major barriers to understanding were identified. The patient expressed understanding and agreement with the above treatment plan. The patient was made aware they should contact our office by phone for worsening of their current condition, the appearance of new symptoms, or with any questions or concerns. Compliance is encouraged with any medications and follow up testing that is ordered. It is a privilege to be allowed the opportunity to participate in? your urological care.? Again, if you have any questions or concerns If you have any questions or concerns please do not hesitate to contact me. The office is [phone]. This note is constructed using voice recognition software. While every effort has been made to ensure accuracy mental health social worker errors may have been included. Yours sincerely, MAGUI Uriarte Coding Level of Care Code Est Pt Level 3 (80754) Diagnoses Calcium nephrolithiasis N20.0 Flank pain R10.9 CPT Codes Post Residual Void - PVR CPT Code: 11053-Cevq Void Residual by ultrasound ([id number])
== END 2024-07-14 10:15 | disposition home or self-care (01) ==
LOC: HO.HUSH 09:32
PROVIDERS: PCP Internal Medicine; Visit Provider Nurse Practitioner Family
DX: N20.0 Calculus of kidney (principal); R10.9 Unspecified abdominal pain; Z13.9 Encounter for screening, unspecified
CPT/HCPCS: 99213

== ENCOUNTER → 2024-07-14 09:32 | Outpatient (BNVA) | payer MEDICAID, SELFPAY | PROVIDERS: PCP Internal Medicine; Visit Provider Nurse Practitioner Family | DX: N20.0 Calculus of kidney (principal); R10.9 Unspecified abdominal pain; R30.0 Dysuria | CPT/HCPCS: 51798; 81003; 99212 ==

== ENCOUNTER 2024-10-27 16:36 | Emergency (ER) | payer MEDICAID, SELFPAY ==
[2024-10-27 17:32] VITALS: BP 144/94; PULSE 96; RESP 18; TEMP 37.2; O2SAT 99; BMI 26.2
--- NOTE | 2024-10-27 17:33 | ED_ITS ---
HPI - General Adult General Chief complaint: Back Pain/Injury Stated complaint: abd pain,kidney stones Related Data Home Medications ?Medication ?Instructions ?Recorded ?Confirmed atorvastatin 20 mg tablet 20 mg PO DAILY 08/20/21 cholecalciferol (vitamin D3) 25 25 mcg PO DAILY 08/20/21 mcg (1,000 unit) capsule (Vitamin D3) duloxetine 30 mg capsule,delayed 90 mg PO DAILY 08/20/21 release gabapentin 800 mg tablet 800 mg PO TID 08/20/21 ketoconazole 2 % topical cream appl topical BEDTIME 08/20/21 methocarbamol 500 mg tablet 500 mg PO TID 08/20/21 quetiapine 100 mg tablet 100 mg PO BEDTIME 08/20/21 quetiapine 25 mg tablet 25 mg PO BEDTIME 08/20/21 sumatriptan succinate 100 mg tablet 100 mg PO DIRECTED 08/20/21 omeprazole 20 mg capsule,delayed 20 mg PO DAILY 07/14/24 release Previous Rx's ?Medication ?Instructions ?Recorded cyclobenzaprine 10 mg tablet 10 mg PO TID PRN muscle spasm #14 12/14/20 tabs ondansetron 4 mg disintegrating 4 mg PO Q8H PRN nausea and 07/14/24 tablet vomiting #20 tabs fluconazole 150 mg tablet 150 mg PO Q3D 2 doses #2 tabs 07/28/24 levofloxacin 500 mg tablet 500 mg PO DAILY 5 days #5 tabs 07/28/24 metronidazole 250 mg tablet 250 mg PO BID 7 days #14 tabs 07/28/24 Allergies Allergy/AdvReac Type Severity Reaction Status Date / Time SEAFOOD Allergy Unknown ITCHY Uncoded 10/27/24 17:34 [facility] Past Medical History Medical History Hematuria Renal colic Migraine Carpal tunnel syndrome Sleep disorder breathing Depressed Diabetes Back complaints Scoliosis Surgical History History of ureter stent History of tubal ligation Previous back surgery Social History Social History Alcohol intake: never Advance Directives: No Advance Directives Information Provided: No Do you have a plan to hurt others: No Plan Physical Exam ED Vital Signs: BMI result Body Mass Index 26.2 Course Course Course Narrative: This is a rapid medical exam performed by Alon Abdi NP: Additional HPI, ROS, PE not included below will be deferred to primary provider. Patient is a 48-year-old female presenting to the ED with complaint of right flank and low back pain as well as hematuria. Nausea, decreased appetite. Plan: labs, UA, ?CT Medical Decision Making Lab Data 10/27/24 22:45 10/27/24 22:45 Labs: Lab Results 10/27/24 Range/Units 22:45 WBC 8.6 (4.8-10.8) X10*3/uL RBC 4.75 (4.20-5.50) X10*6/uL Hgb 14.3 (12.0-16.0) g/dl Hct 41.7 (37.0-47.0) % MCV 87.8 (80.0-98.0) fL MCH 30.1 (27.0-33.0) pg MCHC 34.3 (31.0-35.0) g/dl RDW 13.8 (11.0-16.0) % Plt Count 319 (160-400) X10*3/uL MPV 9.5 (9.4-12.3) fL Immature Gran % (Auto) 0.2 (0.0-0.4) % Neut % (Auto) 54.0 (45-73) % Lymph % (Auto) 39.4 (20-40) % [place] % (Auto) 5.8 (2-11) % Eos % (Auto) 0.3 (0-4) % Baso % (Auto) 0.3 (0-2) % Lymph # (Auto) 3.4 (1.2-4.9) X10*3/uL [place] # (Auto) 0.5 (0.1-1.2) X10*3/uL Eos # (Auto) 0.0 (0.0-0.4) X10*3/uL Baso # (Auto) 0.0 (0.0-0.2) X10*3/uL Abs Immat Gran (auto) 0.02 (0.00-0.03) X10*3/uL Absolute Neuts (auto) 4.7 (2.0-8.3) x10*3/uL Absolute Nucleated RBC 0.000 (0.0-0.012) X10*3/uL Nucleated RBC % (auto) 0.0 (0.0-0.2) /100WBC Sodium 141 (135-145) mmol/L Potassium 3.9 (3.3-5.1) mmol/L Chloride 106 (96-108) mmol/L Carbon Dioxide 27 (22-29) mmol/L Anion Gap 12 (12-20) BUN 7 L (9-16) mg/dL Creatinine 0.54 (0.5-1.4) mg/dL Estim Creat Clear Calc 110.2 Estimated GFR > 60 Random Glucose 98 (60-115) mg/dL Calcium 9.9 D (8.4-10.2) mg/dL Total Bilirubin 0.3 (0.0-1.0) mg/dL AST 22 (5-31) U/L ALT 16 (0-31) U/L Alkaline Phosphatase 69 (39-117) U/L Total Protein 8.1 H (6.5-8.0) g/dL Albumin 4.2 (3.5-5.0) g/dL Beta HCG, Quant < 2 mIU/mL Discharge Plan Discharge Clinical Impression: Flank pain Patient Disposition: Left W/O Completing Treatment Prescriptions: No Action levofloxacin 500 mg tablet 500 mg PO DAILY 5 Days Qty: 5 0RF fluconazole 150 mg tablet 150 mg PO Q3D Qty: 2 0RF metronidazole 250 mg tablet 250 mg PO BID 7 Days Qty: 14 0RF cyclobenzaprine 10 mg tablet 10 mg PO TID PRN (Reason: muscle spasm) Qty: 14 0RF methocarbamol 500 mg tablet 500 mg PO TID sumatriptan succinate 100 mg tablet 100 mg PO DIRECTED ketoconazole 2 % cream topical BEDTIME quetiapine 100 mg tablet 100 mg PO BEDTIME atorvastatin 20 mg tablet 20 mg PO DAILY duloxetine 30 mg capsule,delayed release(DR/EC) 90 mg PO DAILY gabapentin 800 mg tablet 800 mg PO TID quetiapine 25 mg tablet 25 mg PO BEDTIME cholecalciferol (vitamin D3) [Vitamin D3] 25 mcg (1,000 unit) capsule 25 mcg PO DAILY omeprazole 20 mg capsule,delayed release(DR/EC) 20 mg PO DAILY ondansetron 4 mg tablet,disintegrating 4 mg PO Q8H PRN (Reason: nausea and vomiting) Qty: 20 0RF Discharge Date/Time: 10/28/24 01:35
[2024-10-27 22:51] LABS: Basophils Percent Auto 0.3 % (0-2); Eosinophils Percent Auto 0.3 % (0-4); Hematocrit 41.7 % (37.0-47.0); Hemoglobin 14.3 g/dl (12.0-16.0); Imm Gran Abs Auto 0.02 X10*3/uL (0.00-0.03); Imm Gran Pct Auto 0.2 % (0.0-0.4); Lymphocytes Absolute Auto 3.4 X10*3/uL (1.2-4.9); Lymphocytes Percent Auto 39.4 % (20-40); MANUAL DIFF FLAG NO; Mean Corpuscular HGB Conc 34.3 g/dl (31.0-35.0); Mean Corpuscular Hemoglobin 30.1 pg (27.0-33.0); Mean Corpuscular Volume 87.8 fL (80.0-98.0); Mean Platelet Volume 9.5 fL (9.4-12.3); Monocytes Absolute Auto 0.5 X10*3/uL (0.1-1.2); Monocytes Percent Auto 5.8 % (2-11); Neutrophils Absolute Auto 4.7 x10*3/uL (2.0-8.3); Platelet Count 319 X10*3/uL (160-400); Red Blood Count 4.75 X10*6/uL (4.20-5.50); Red Cell Distribution Width 13.8 % (11.0-16.0); White Blood Count 8.6 X10*3/uL (4.8-10.8)
[2024-10-27 23:11] LABS: Alanine Aminotransferase 16 U/L (0-31); Albumin Level 4.2 g/dL (3.5-5.0); Alkaline Phosphatase 69 U/L (39-117); Anion Gap 12 (12-20); Aspartate Amino Transferase 22 U/L (5-31); Bilirubin Total 0.3 mg/dL (0.0-1.0); Blood Urea Nitrogen 7 mg/dL (9-16); Calcium 9.9 mg/dL (8.4-10.2); Carbon Dioxide 27 mmol/L (22-29); Chloride 106 mmol/L (96-108); Creatinine Clr Calc Pharmacy 110.2; Estimated Glomerular Filt Rate > 60; Glucose Random 98 mg/dL (60-115); HCG Quantitative < 2 mIU/mL; Potassium 3.9 mmol/L (3.3-5.1); Sodium 141 mmol/L (135-145); Total Protein 8.1 g/dL (6.5-8.0)
== END 2024-10-28 01:35 | disposition left against medical advice (07) ==
LOC: HO.ED 10-28 01:10
PROVIDERS: Registered Nurse Emergency; Emergency Provider Emergency Medicine
DX: N20.0 Calculus of kidney (principal); R10.2 Pelvic and perineal pain; Z79.899 Other long term (current) drug therapy
CPT/HCPCS: 36415; 80053; 84702; 85025; 99281; 99283

== ENCOUNTER 2025-01-05 12:17 | Outpatient (REF) | payer MEDICAID, SELFPAY ==
--- OUTSIDE RECORDS SUMMARY | 2025-01-05 14:22 | XMS_ITS | Encounter Summary ---
Author Organization [employer] Address [address] [place] [address] Care Team Providers Care Armament Installer Name Role Phone Stacey Lewis MD Primary Care Provider + Encounter Details Date Type Department Care Team ([facility] Contact Info) Description 03/31/2023 Orders Only [facility] MED & PEDS [address] [place], [place] [phone] Jeanne Romeo LPN Social History Tobacco Use Types Packs/Day Years Used Date Smoking Tobacco: Every Day Cigarettes 0.8 26.8 Started: 03/28/1998 Smokeless Tobacco: Never Alcohol Use Standard Drinks/Week Comments Never 0 (1 standard drink = 0.6 oz pur e alcohol) Comments Unknown Sex and Gender Information Value Date Recorded Sex Assigned at Female 07/07/2022 10:16 AM EDT Legal Sex Female 10:16 AM EDT Gender Identity Female 07/07/2022 10:16 AM EDT Sexual Orientation Straight 07/07/2022 10 :16 AM EDT COVID-19 Exposure Response Date Recorded In the last 10 days, have andrea grimes been in contact with someone who was confirmed or suspected to have Coronavirus/COVID-19? No / Unsure 03/11/2023 4:48 PM EDT documented as of this encounter Plan of Treatment Upcoming Encounters Date Type Department Care Team ([facility] Contact Info) Description 04/06/2025 11:45 AM EDT Office Visit [facility] MED[facility] [address] [place] [phone] Stacey Lewis MD [address] [place] [address] documented as of this encounter Visit Diagnoses Not on filedocumented in this encounter Additional Health Concerns Assessment Noted Time PHQ-9 Depression Total Score: 19 023 11:23 AM EDT documented as of this encounter Care Teams Armament Installer Relationship Specialty Start Date End Date Stacey Lewis MD [address] [place] [address] PCP - General Family Medicine 06/11/17 documented as of this encounter
--- OUTSIDE RECORDS SUMMARY | 2025-01-05 14:22 | XMS_ITS | Encounter Summary ---
Author Organization [employer] Address [address] [facility] [address] [place] [address] Care Team Providers Care Private Tutors And Teachers Name Role Phone Stacey Lewis MD Primary Care Provider + Reason for Visit * Reason Comments Med Refill Encounter Details Date Type Department Care Team ([facility] st Contact Info) Description 06/14/2023 Refill [facility] CHC MED & PEDS [address] [place], [place] [phone] Stacey Lewis MD [address] [place], [place] [phone] Pain Social History Tobacco Use Types Packs/Day Years Used Date Smoking Tobacco: Every Day Cigarettes 0.8 26.8 Started: 03/28/1998 Smokeless Tobacco: Never Alcohol Use Standard Drinks/Week Comments Never 0 (1 standard drink = 0.6 oz pur e alcohol) Depression Answer Date Recorded Patient Health Questionnaire-9 Score 18 04/09/2023 Housing Stability Answer Date Recorded What is your housing situation today? I have kasandra dorsey 06/14/[address] you li ve. Do you have problems with any of the following? None of the above 06/14/2023 Food Insecurity Answer Date Recorded Within the past 12 months, y ou worried that your food would run out before you got money to buy more: Never True 06/14/2023 Within the past 12 months,th e food you bought just didn't last and you didn't have enough money to get more: Never True 04/2023 Transportation Answer Date Recorded In the past 12 months, has l ack of transportation kept you from medical appts, meetings, work or from getting things needed for daily living? No 06/14/2023 Utilities Answer Date Recorded In the past 12 months, has t he electric, gas, oil or water company threatened to shut off services in your home? No 06/14/2023 Depression Answer Date Recorded Patient Health Questionnaire-2 Score 6 04/09/2023 Comments Unknown Sex and Gender Information Value Date Recorded Sex Assigned at Female 07/07/2022 10:16 AM EDT Legal Sex Female 10:16 AM EDT Gender Identity Female 07/07/2022 10:16 AM EDT Sexual Orientation Straight 07/07/2022 10 :16 AM EDT documented as of this encounter Plan of Treatment Upcoming Encounters Date Type Department Care Team (Late st Contact Info) Description 04/06/2025 11:45 AM EDT Office Visit [facility] MEDICINE [address] [place] [phone] Stacey Lewis MD [address] [place] [address] documented as of this encounter Visit Diagnoses Diagnosis Pain Generalized pain documented in this encounter Additional Health Concerns Assessment Noted Time PHQ-9 Depression Total Score: 18 023 4:22 PM EDT documented as of this encounter Care Teams Private Tutors And Teachers Relationship Specialty Start Date End Date Stacey Lewis MD [address] [place] [phone] PCP - General Family Medicine 06/11/17 documented as of this encounter
--- OUTSIDE RECORDS SUMMARY | 2025-01-05 14:22 | XMS_ITS | Encounter Summary ---
Author Organization [employer] Address [address] [facility] [address] [place] [address] Care Team Providers Care Pulp Press Tender Name Role Phone Stacey Lewis MD Primary Care Provider + Encounter Details Date Type Department Care Team (Late st Contact Info) Description 11/10/2022 Orders Only [facility] CH[facility] MED & PEDS [address] [place] [address] Jeanne Romeo LPN Social History Tobacco Use Types Packs/Day Years Used Date Smoking Tobacco: Never Assessed Comments Unknown Sex and Gender Information Value [...] Description 04/06/2025 11:45 AM EDT Office Visit [facility] [address] [place] [address] Stacey Lewis MD [address] [place] [address] documented as of this encounter Visit Diagnoses Not on filedocumented in this encounter Care Teams Pulp Press Tender Relationship Specialty Start Date End Date Stacey Lewis MD [address] [place] [address] PCP - General Family Medicine 06/11/17 documented as of this encounter
--- OUTSIDE RECORDS SUMMARY | 2025-01-05 14:22 | XMS_ITS | Encounter Summary ---
Author Organization [employer] Address [address] [facility] [address] [place] [address] Care Team Providers Care Rod Drawer Name Role Phone Stacey Lewis MD Primary Care Provider + Encounter Details Date Type Department Care Team (Latest Contact Info) Description 01/03/2025 Travel Social History Tobacco Use Types Packs/Day Years Used Date Smoking Tobacco: Every Day Cigarettes 0.8 26.8 Started: 03/28/1998 Passive Smoke Exposure: Current Smokeless Tobacco: Never Alcohol Use Standard Drinks/Week Comments Never 0 (1 standard drink = 0.6 oz pur e alcohol) Depression Answer Date Recorded Patient Health Questionnaire-9 Score 21 12/11/2023 Patient Health Questionnaire-9 Score 21 12/11/2023 Last PHQ-9: Questionnaire Data Not on file 0 12/11/2023 Housing Stability Answer Date Recorded What is your housing situation today? I have kasandra dorsey 06/26/[address] you li ve. Do you have problems with any of the following? None of the above 06/26/2023 Food Insecurity Answer Date Recorded Within the past 12 months, y ou worried that your food would run out before you got money to buy more: Never True 06/26/2023 Within the past 12 months,th e food you bought just didn't last and you didn't have enough money to get more: Never True Transportation Answer Date Recorded In the past 12 months, has l ack of transportation kept you from medical appts, meetings, work or from getting things needed for daily living? No 06/26/2023 Utilities Answer Date Recorded In the past 12 months, has t he electric, gas, oil or water company threatened to shut off services in your home? No 06/26/2023 Depression Answer Date Recorded Patient Health Questionnaire-2 Score 6 12/11/2023 Comments No Sex and Gender Information Value Date Recorded Sex Assigned at Female 07/07/2022 10:16 AM EDT Legal Sex Female 10:16 AM EDT Gender Identity Female 07/07/2022 10:16 AM EDT Sexual Orientation Straight 07/07/2022 10 :16 AM EDT documented as of this encounter Plan of Treatment Upcoming Encounters Date Type Department Care Team (Late st Contact Info) Description 04/06/2025 11:45 AM EDT Office Visit [facility] MEDICINE [address] [place] [phone] Stacey Lewis MD [address] [place] [phone] documented as of this encounter Visit Diagnoses Not on filedocumented in this encounter Additional Health Concerns Assessment Noted Time PHQ-9 Depression Total Score: 21 024 9:13 AM EDT documented as of this encounter Care Teams Rod Drawer Relationship Specialty Start Date End Date Stacey Lewis MD [address] [place] [phone] PCP - General Family Medicine 06/11/17 documented as of this encounter
--- OUTSIDE RECORDS SUMMARY | 2025-01-05 14:22 | XMS_ITS | Encounter Summary ---
Author Organization [employer] Address [address] [facility] [address] [place] [address] Care Team Providers Care Drug And Alcohol Treatment Specialist Name Role Phone Stacey Lewis MD Primary Care Provider + Reason for Visit * Reason Comments Med Refill Encounter Details Date Type Department Care Team ([facility] st Contact Info) Description 08/21/2023 Refill [facility] MED & PEDS [address] [place], [place] [phone] Stacey Lewis MD [address] [place], [place] [phone] Anxiety Social History Tobacco Use Types Packs/Day Years [...] Description 04/06/2025 11:45 AM EDT Office Visit [facility] MEDICINE [address] [place] [address] Stacey Lewis MD [address] [place] [address] documented as of this encounter Visit Diagnoses Diagnosis Anxiety Anxiety state, unspecified documented in this encounter Additional Health Concerns Assessment Noted Time PHQ-9 Depression Total Score: 18 023 4:22 PM EDT documented as of this encounter Care Teams Drug And Alcohol Treatment Specialist Relationship Specialty Start Date End Date Stacey Lewis MD [address] [place] [phone] PCP - General Family Medicine 06/11/17 documented as of this encounter
--- OUTSIDE RECORDS SUMMARY | 2025-01-05 14:22 | XMS_ITS | Encounter Summary ---
Author Organization [employer] Address [address] [facility] [address] [place] [address] Care Team Providers Care Bleach Range Operator Name Role Phone Stacey Lewis MD Primary Care Provider + Encounter Details Date Type Department Care Team (Late st Contact Info) Description 09/23/2022 Orders Only [facility] MEDICINE [address] [place] [phone] Felicitas Godwin LPN Social History Tobacco Use Types Packs/Day [...] Description 04/06/2025 11:45 AM EDT Office Visit [facility] MEDICINE [address] [place] [phone] Stacey Lewis MD [address] [place] [phone] documented as of this encounter Visit Diagnoses Not on filedocumented in this encounter Care Teams Bleach Range Operator Relationship Specialty Start Date End Date Stacey Lewis MD [address] [place] [phone] PCP - General Family Medicine 06/11/17 documented as of this encounter
--- OUTSIDE RECORDS SUMMARY | 2025-01-05 14:22 | XMS_ITS | Encounter Summary ---
Author Organization No [employer] Address [address] [facility] [address] [place] [address] Care Team Providers Care Water Plant Operator Name Role Phone Stacey Lewis MD Primary Care Provider + Encounter Details Date Type Department Care Team (Late st Contact Info) Description 09/24/2022 Orders Only [facility] PEDS [address] [place] [address] Jeanne Romeo LPN Social History Tobacco Use [...] Description 04/06/2025 11:45 AM EDT Office Visit [facility] MEDICINE [address] [place] [address] Stacey Lewis MD [address] [place] [address] documented as of this encounter Visit Diagnoses Not on filedocumented in this encounter Care Teams Water Plant Operator Relationship Specialty Start Date End Date Stacey Lewis MD [address] [place] [address] PCP - General Family Medicine 06/11/17 documented as of this encounter
--- OUTSIDE RECORDS SUMMARY | 2025-01-05 14:22 | XMS_ITS | Clinical Summary ---
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 Health Maintenance Insurance [place] [address] C3 Care Teams Rotor Casting Machine Operator Relationship Specialty Start Date End Date Stacey Lewis MD [address] [place] [phone] PCP - General Family Medicine 06/11/17
--- OUTSIDE RECORDS SUMMARY | 2025-01-05 14:22 | XMS_ITS | Encounter Summary ---
Author Organization [employer] Address 75 [facility] 7t [place] [address] Care Team Providers Care Pond Worker Name Role Phone Stacey Lewis MD Primary Care Provider + Encounter Details Date Type Department Care Team (Late st Contact Info) Description 11/26/2022 Orders Only [facility] MED & PEDS [address] [place] [address] Jeanne Romeo LPN Social History Tobacco Use [...] Description 04/06/2025 11:45 AM EDT Office Visit [facility] MEDICINE [address] [place] [address] Stacey Lewis MD [address] [place] [address] documented as of this encounter Visit Diagnoses Not on filedocumented in this encounter Care Teams Pond Worker Relationship Specialty Start Date End Date Stacey Lewis MD [address] [place] [address] PCP - General Family Medicine 06/11/17 documented as of this encounter
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
--- OUTSIDE RECORDS SUMMARY | 2025-01-05 14:22 | XMS_ITS | Encounter Summary ---
Author Organization [employer] Address 75 [facility] 7t [place] [address] Care Team Providers Care Waterproof Bag Sewer Name Role Phone Stacey Lewis MD Primary Care Provider + Reason for Visit * Reason Comments Med Refill Encounter Details Date Type Department Care Team ([facility] st Contact Info) Description 08/04/2023 Refill [facility] MEDICINE [address] [place], [place] [phone] Stacey Lewis MD [address] [place], [place] [phone] Anxiety Social History Tobacco Use Types Packs/Day Years Used Date Smoking Tobacco: Every Day Cigarettes 0.8 26.8 Started: 03/28/1998 Smokeless Tobacco: Never Alcohol Use Standard Drinks/Week Comments Never 0 (1 standard drink = 0.6 oz pur e alcohol) Depression Answer Date Recorded Patient Health Questionnaire-9 Score 18 04/09/2023 Housing Stability Answer Date Recorded What is your housing situation today? I have kasandrasydney dorsey 06/26/[address] you [...] Description 04/06/2025 11:45 AM EDT Office Visit [facility] MEDICINE [address] [place] [address] Stacey Lewis MD [address] [place] [address] documented as of this encounter Visit Diagnoses Diagnosis Anxiety Anxiety state, unspecified documented in this encounter Additional Health Concerns Assessment Noted Time PHQ-9 Depression Total Score: 18 023 4:22 PM EDT documented as of this encounter Care Teams Waterproof Bag Sewer Relationship Specialty Start Date End Date Stacey Lewis MD [address] [place] [phone] PCP - General Family Medicine 06/11/17 documented as of this encounter
--- OUTSIDE RECORDS SUMMARY | 2025-01-05 14:22 | XMS_ITS | Encounter Summary ---
Author Organization [email or web address] Address 75 [facility] 7t [place] [address] Care Team Providers Care Hospital Insurance Representative Name Role Phone Stacey Lewis MD Primary Care Provider + Reason for Visit * Reason Comments Med Refill Encounter Details Date Type Department Care Team (Late st Contact Info) Description 11/12/2022 Refill [facility] MEDICINE [address] [place] [address] [phone] Stacey Lewis MD [address] [place] [address] [phone] Social History Tobacco Use Types Packs/Day Years [...] Description 04/06/2025 11:45 AM EDT Office Visit [facility] MEDICINE [address] [place] [phone] Stacey Lewis MD [address] [place] [address] documented as of this encounter Visit Diagnoses Not on filedocumented in this encounter Care Teams Hospital Insurance Representative Relationship Specialty Start Date End Date Stacey Lewis MD [address] [place] [phone] PCP - General Family Medicine 06/11/17 documented as of this encounter
--- OUTSIDE RECORDS SUMMARY | 2025-01-05 14:22 | XMS_ITS | Encounter Summary ---
Author Organization [employer] Address 75 [facility] 7t [place] [address] Care Team Providers Care Sponge Buffer Name Role Phone Stacey Lewis MD Primary Care Provider + Reason for Visit * Reason Comments Med Refill Encounter Details Date Type Department Care Team (Late st Contact Info) Description 03/07/2024 Refill [facility] MEDICINE [address] [place], [place] [phone] Stacey Lewis MD [address] [place], [place] [phone] Anxiety Social History Tobacco Use Types Packs/Day [...] Description 04/06/2025 11:45 AM EDT Office Visit [facility] MEDICINE [address] [place] [address] Stacey Lewis MD [address] [place] [address] documented as of this encounter Visit Diagnoses Diagnosis Anxiety Anxiety state, unspecified documented in this encounter Additional Health Concerns Assessment Noted Time PHQ-9 Depression Total Score: 21 024 9:13 AM EDT documented as of this encounter Care Teams Sponge Buffer Relationship Specialty Start Date End Date Stacey Lewis MD [address] [place] [phone] PCP - General Family Medicine 06/11/17 documented as of this encounter
--- OUTSIDE RECORDS SUMMARY | 2025-01-05 14:22 | XMS_ITS | Encounter Summary ---
Author Organization [employer] Address 75 [facility] 7t [place] [address] Care Team Providers Care Trace Clerk Name Role Phone Stacey Lewis MD Primary Care Provider + Encounter Details Date Type Department Care Team (Late st Contact Info) Description 10/20/2022 Orders Only [facility] MEDICINE [address] [place] [phone] Felicitas Godwin LPN Social History Tobacco Use [...] Description 04/06/2025 11:45 AM EDT Office Visit [facility] MEDICINE [address] [place] [phone] Stacey Lewis MD [address] [place] [phone] documented as of this encounter Visit Diagnoses Not on filedocumented in this encounter Care Teams Trace Clerk Relationship Specialty Start Date End Date Stacey Lewis MD [address] [place] [phone] PCP - General Family Medicine 06/11/17 documented as of this encounter
[2025-01-05 14:41] LABS: Syphilis Screen Nonreactive (Nonreactive)
[2025-01-05 14:44] LABS: HBS Num1 0.11 mIU/mL (0-7.99); HBc Num1 0.53 S/CO (0.00-0.79); HBsAGNum1 0.28 S/CO (0.00-0.99); HIV AB/AG Nonreactive (Nonreactive); HIV Num 1 0.06 S/CO (0.00-0.99); Hepatitis A Antibody IgM 0.17 Index (0-0.79); Hepatitis B Core Antibody Nonreactive (Nonreactive); Hepatitis B Surface Antigen Negative (Negative); ~HepC Num1 0.15 S/CO (0.00-0.79); ~Hepatitis A Antibody IgM Nonreactive (Nonreactive); ~Hepatitis B Surface Antibody NONREACTIVE (Nonreactive); ~Hepatitis C Antibody Nonreactive (Nonreactive)
== END 2025-01-05 12:18 | disposition home or self-care (01) ==
LOC: HO.HHCL 12:17
PROVIDERS: Visit Provider Internal Medicine
DX: R63.4 Abnormal weight loss (principal)
CPT/HCPCS: 36415; 86704; 86706; 86709; 86780; 86803; 87340; 87389

== ENCOUNTER 2025-02-21 12:36 | Outpatient (REF) | payer MEDICAID, SELFPAY ==
--- NOTE | 2025-02-21 12:50 | PFT_ITS ---
Indication: Dyspnea Spirometry FEV1 to FVC 80%; FEV1 2.48 L; FVC 3.11 L. No significant response to bronchodilators noted. FEF 25-75 63% predicted Lung Volumes Total lung capacity 99% predicted Diffusion Capacity DLCO 87% predicted Comparisons None Interpretation No obstructive nor restrictive ventilatory defects identified. No significant response to bronchodilators noted. Lung volumes are within normal limits. Diffusing capacity also within normal limits. The patient does have some evidence of small airways disease. If asthma is in the differential a methacholine challenge will be helpful in assessing for hyperreactive airways and to further address a diagnosis of asthma. Clinical correlation warranted. MTDD
[2025-02-21 13:30] VITALS: PULSE 97; O2SAT 99
--- OUTSIDE RECORDS SUMMARY | 2025-02-21 14:16 | XMS_ITS | Encounter Summary ---
Author Organization [employer] Address 75 [facility] 7t [place] [address] Care Team Providers Care Stem Lead Former Name Role Phone Stacey Lewis MD Primary Care Provider + Encounter Details Date Type Department Care Team ([facility] Contact Info) Description 03/31/[address] [facility] MED & PEDS [address] [place] [address] Jeanne Romeo LPN Social History Tobacco Use Types Packs/Day Years Used Date Smoking Tobacco: Every Day Cigarettes 0.8 26.9 Started: 03/28/1998 Smokeless Tobacco: Never Alcohol Use [...] Upcoming Encounters Date Type Department Care Team ([facility] Contact Info) Description 04/06/2025 11:45 AM EDT Office Visit [facility] MEDICINE [address] [place] [address] Stacey Lewis MD [address] [place] [address] documented as of this encounter Visit Diagnoses Not on filedocumented in this encounter Additional Health Concerns Assessment Noted Time PHQ-9 Depression Total Score: 19 023 11:23 AM EDT documented as of this encounter Care Teams Stem Lead Former Relationship Specialty Start Date End Date Stacey Lewis MD [address] [place] [address] PCP - General Family Medicine 06/11/17 documented as of this encounter
== END 2025-02-21 12:37 | disposition home or self-care (01) ==
LOC: HO.RESP 12:36
PROVIDERS: PCP Internal Medicine; Visit Provider Internal Medicine
DX: R05.3 Chronic cough (principal)
CPT/HCPCS: 94010; 94640; 94727; 94729

== ENCOUNTER → 2025-02-21 12:50 | Outpatient (BNV) | payer MEDICAID, SELFPAY | PROVIDERS: PCP Internal Medicine; Visit Provider Hospitalist | DX: R05.3 Chronic cough (principal); R06.00 Dyspnea, unspecified | CPT/HCPCS: 94060; 94727; 94729 ==